=== PATIENT | female | born 1940 | race Caucasian/White ===

== ENCOUNTER 2018-07-21 07:36 | Inpatient (IN) ==
[2018-07-21] MEDS ORDERED: CeFAZolin Syr 2,000MG/20 ML 2,000 MG/20 ML SYRINGE IVPB ONE (07:58)
[2018-07-21] MEDS ORDERED: 0.9 % Sodium Chloride 500 ML IVC SCH (08:00)
[2018-07-21] MEDS ORDERED: *HR* FentaNYL (PF) 100 MCG/2 ML VIAL ONE (08:05)
[2018-07-21] MEDS ORDERED: Neostigmine Methylsulfate 3 MG/3 ML SYRINGE ONE (08:05)
[2018-07-21] MEDS ORDERED: Dexamethasone 4 MG/ML VIAL ONE ×2 (08:05)
[2018-07-21] MEDS ORDERED: Ondansetron 4 MG/2 ML VIAL ONE (08:05)
[2018-07-21] MEDS ORDERED: *HR* Rocuronium Bromide 50 MG/5 ML VIAL ONE (08:05)
[2018-07-21] MEDS ORDERED: *HR* Succinylcholine 200 MG/10 ML VIAL IVP ONE (08:05)
[2018-07-21] MEDS ORDERED: *HR* Propofol 200 MG/20 ML VIAL IVP ONE (08:05)
[2018-07-21] MEDS ORDERED: Lidocaine -MPF 2% 2 ML VIAL ONE (08:05)
[2018-07-21] MEDS ORDERED: Famotidine 20 MG/2 ML VIAL IVP ONE (08:20)
[2018-07-21] MEDS ORDERED: Acetaminophen IV 1,000 MG/100 ML INFUS..BTL IVPB ONE (08:20)
[2018-07-21] MEDS ORDERED: Pregabalin 75 MG CAPSULE PO ONE (08:20)
--- NOTE | 2018-07-21 08:24 | Anesthesia Evaluation PreOp ---
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: Denies Any Significant HX Other Medical History: Renal (CKD) Anesthesia History: No Prior Anesthetic Complications Alcohol Use: none Drug use: none Medications and Allergies Ammonium Lactate [Lac-Hydrin Five] 1 appl TP BID 07/11/15 [History] Aspirin [Adult Low Dose Aspirin EC] 81 mg PO DAILY 07/11/15 [History] Citalopram Hydrobromide [Celexa] 20 mg PO DAILY 07/11/15 [History] Fluticasone Propionate Nasal [Flonase] 50 mcg NS BID 07/11/15 [History] Metoprolol [Lopressor] 100 mg PO BID 07/11/15 [History] Nitroglycerin [Nitrostat] 0.4 mg SL DAILY PRN 07/11/15 [History] Simvastatin [Zocor] 20 mg PO DAILY 07/11/15 [History] Sucralfate [Carafate] 1 gm PO BID 07/11/15 [History] amLODIPine [Norvasc] 10 mg PO DAILY 07/11/15 [History] Losartan/HCTZ [Hyzaar 50-12.5 Tablet] 1 tab PO DAILY 10/03/15 [History] Docusate [Colace] 100 mg PO BID #60 capsule 10/05/15 [Rx] Albuterol Sulfate [Ventolin Hfa] 2 puff IH Q6H PRN 05/05/18 [History] Levothyroxine Sodium 50 mcg PO DAILY 05/05/18 [History] Potassium Chloride [K-Tab ER] 20 meq PO QPM 05/05/18 [History] Potassium Chloride [K-Tab ER] 40 meq PO QAM 05/05/18 [History] Ranitidine HCl [Zantac] 300 mg PO DAILY 05/05/18 [History] Allergy/AdvReac Type Severity Reaction Status Date / Time HILDA Inhibitors AdvReac Cough Verified 10/03/15 20:12 - Meds/Allergy Pre-op Review Medications Reviewed: Yes Allergies Reviewed: Yes Beta Blockers on Current Med List: Yes (on Metoprolol today 0600) Anesthesia Results - Labs Laboratory Tests 05/05/18 07/08/18 07/11/18 17:18 09:39 14:05 Hgb 9.4 L Hct 31.7 L Plt Count 203 PT 11.5 INR 1.0 APTT 26.9 Sodium 143 Potassium BUN 29 H Creatinine 1.05 07/11/18 14:05 Hgb Hct Plt Count PT INR APTT Sodium Potassium 4.3 BUN Creatinine - Imaging EKG: report reviewed (SR) Additional studies: ECHO 2019 EF 60%, mild pulm htn Anesthesia Exam O2 Sat Height 1.57 m Height 1.57 m Weight 77.111 kg Weight 77.111 kg O2 Sat by Pulse Oximetry 96 O2 Sat by Pulse Oximetry 96 Vital Signs Temp Pulse Resp BP Pulse Ox 97.8 F 61 18 109/69 96 07/21/18 07:51 07/21/18 07:51 07/21/18 07:51 07/21/18 07:51 07/21/18 07:51 Height: 5'2 Weight: 170 lbs NPO (# of Hours): MN Pain Scale: 0 - HEENT Pupil (Motor): Pupils equal, EOMI Mallampati: III Denture Type: Upper: Complete Oral Opening: Less than or equal to 3 - 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
--- NOTE | 2018-07-21 08:38 | History & Physical Report ---
Date of Encounter: 07/21/18 Time of Encounter: 08:30 24 Hour HP Update - Instructions Instructions: If the History and Physical is less than 30 days old and was completed prior to A.M. admission and or procedure and has NOT been updated on calendar day of procedure please complete this update prior to performing procedure. - Update Patient reports changes in Medical Condition: No Changes in examination, assessment, or condition: No Changes in Medication: No Preop tests/diagnostics Reviewed: Yes Surgery Remains Indicated: Yes Consent for Planned Operative Procedure(s) Verified: Yes - Pre-Operative Checklist Preoperative Checklist Indicated: Yes Prophylactic Antibiotic Ordered: Yes Home Medications Include Beta Carmen: Yes Beta Carmen Taken Today (Day of Surgery): Yes Beta Carmen Taken Yesterday (Day Prior to Surgery): Yes Is VTE Prophylaxis Indicated?: Yes
[2018-07-21] MEDS ORDERED: *HR* Morphine 2 MG/ML SYRINGE IVP PRN (08:45)
[2018-07-21] MEDS ORDERED: Ondansetron 4 MG/2 ML VIAL IVP ONE (08:45)
[2018-07-21] MEDS ORDERED: CefOXitin 1,000 MG VIAL ONE (09:00)
[2018-07-21] MEDS ORDERED: *HR* PHENYLEPHRINE 1,000 MCG/10 ML SYRINGE IVP ONE (09:20)
[2018-07-21] MEDS ORDERED: SUGAMMADEX SODIUM 500 MG/5 ML VIAL IV ONE (10:40)
--- NOTE | 2018-07-21 11:06 | Operative Note ---
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 Placement of right chest tube Anesthesia: TAHMINA Surgeon: Leonardo Calix Was there an recruiting assistant present: Yes Brim Pouncing Machine Operator: Ariela Gonzalez Estimated blood loss (cc): 25 Specimen: None Condition: stable Disposition: PACU Procedure in Detail: After informed consent the patients taking major operative suite placed supine position and given adequate general endotracheal anesthesia. The abdomen was prepped and draped in sterile fashion utilizing ChloraPrep standard draping techniques. Timeout was taken and patient was identified. I made an upper abdominal midline incision. The abdomen was entered. The vast majority of the stomach was intrathoracic. I mobilized the triangular ligament and lateral segment of left lobe of liver and retracted this inferiorly. Bookwalter retractor was placed. I divided the lesser omentum and entered the lesser sac over the right crura of the diaphragm. There were extensive hernia sac and soft tissue connections to the mediastinum especially on the right side. A lighted bougie dilator was used to positively identify the esophagus at all times and assist in the dissection. I divided the anterior hernia sac tissue holding the esophagus posteriorly. I then divided the short gastrics. There are was extensive soft tissue connection between the retroperitoneum just above the pancreas and the left side of the mediastinum. This had actually pulled the tail and body of the pancreas intrathoracic as well as the splenic artery. Di vision of the soft tissue allowed me to swing the pancreas and celiac axis back into the abdomen. The cardia was completely mobilized. There were extensive soft tissue connections posterior to the esophagus pulled into the right chest. These were divided. When this tissue was divided the right lung was visible. This was obviously pleura that had been pulled down into the abdomen with the hernia sac. The decision was made to place a right chest tube at the end of the case. The right maynor of the diaphragm was completely mobilized. The left crura of the diaphragm was now completely visible now that the overlying soft tissue was divided. The esophagus was completely surrounded with [place] drain and it appeared that the anterior and posterior vagus was intact. Repair the hiatal hernia was then performed with 4 stitches of 2-0 Ethibond with pledgets. This gave an excellent technical result. The patient's primary symptoms were dysphagia and atypical chest pain. I did not feel that Luigi fundoplication was appropriate. Instead, I performed anterior gastropexy. The cardia of the stomach was sutured onto the diaphragm with 8 stitches of 2-0 silk in its normal anatomic configuration. Total blood loss 25 mL. The liver was returned to its normal anatomic orientation. I irrigated with copious amounts of antibiotic containing solution. The fascia was closed with looped 0 PDS and the skin was closed with interrupted 2-0 Vicryl and skin clips. I used 30 mL of Marcaine for local pain management. I exposed the right chest this was prepped with ChloraPrep. I made a anterior axillary line incision and dissected down to the rib. I tunneled one rib higher and entered the chest. A #28-Vietnamese chest tube was placed to the apex without difficulty. There were normal respiratory variation with ventilation. This was sutured in place with 0 silk and attached to the chest tube drain. Postoperative chest x-ray is ordered. The patient tolerated procedure well and was transferred to recovery in stable condition.
[2018-07-21] MEDS: *HR* HYDROmorphone (PF) 1 MG/ML SYRINGE IVP PRN ×2 (11:25→11:33)
[2018-07-21] MEDS ORDERED: 0.9 % Sodium Chloride 500 ML ONE (11:53)
--- NOTE | 2018-07-21 12:15 | Anesthesia Evaluation Post Op ---
Date of Encounter: 07/21/18 Time of Encounter: 12:10 - Vital Signs Vital Signs: O2 Sat Height 1.57 m Height 1.57 m Weight 77.111 kg Weight 77.111 kg O2 Sat by Pulse Oximetry 96 O2 Sat by Pulse Oximetry 96 O2 Sat by Pulse Oximetry 96 O2 Sat by Pulse Oximetry 92 O2 Sat by Pulse Oximetry 94 O2 Sat by Pulse Oximetry 97 O2 Sat by Pulse Oximetry 93 O2 Sat by Pulse Oximetry 96 O2 Sat by Pulse Oximetry 96 Vital Signs Temp Pulse Resp BP Pulse Ox 97.8 F 61 18 109/69 96 07/21/18 07:51 07/21/18 07:51 07/21/18 07:51 07/21/18 07:51 07/21/18 07:51 - Lungs Lungs: Clear Ascult./Percussion - Airway Airway: Non-obstructed - Cardiovascular Regular Rate - Mental Status Mental Status: Alert & Oriented, Answers Appropriately - Pain Pain Scale: 0 - Nausea Vomiting Nausea Vomiting: Not Present - Hydration Hydration: Ice chips - Discharge PostOp Status: Transfer Patient to floor
[2018-07-21] MEDS ORDERED: *HR* HYDROmorphone 20 MG/20 ML PCA IVC PRN (12:38)
[2018-07-21] MEDS ORDERED: Ondansetron 4 MG/2 ML VIAL IVP PRN (12:38)
[2018-07-21] MEDS: 0.9 % Sodium Chloride 1,000 ML IVC SCH (13:09)
[2018-07-21] MEDS: *HR* Metoprolol 5 MG/5 ML VIAL IVP SCH ×2 (13:10→17:15)
[2018-07-21] MEDS ORDERED: 0.9 % Sodium Chloride 500 ML IVC ONE (13:26)
[2018-07-21 15:05] LABS: Basophils % 0.1 %; Eosinophils % 0.3 %; Hematocrit 28.5 % (35.3-44.9); Hemoglobin 8.5 g/dL (11.5-15.4); Immature Granulocytes % 0.3 % (0-4); Lymphocytes # 0.6 K/mcL (0.6-4.6); Mean Corpuscular HGB Conc 29.8 g/dL (31.6-35.5); Mean Corpuscular Hemoglobin 24.6 pg (28.0-33.3); Mean Corpuscular Volume 82.6 fL (83.0-100.0); Mean Platelet Volume 10.7 fL (9.4-12.4); Monocytes # 0.2 K/mcL (0.0-1.3); Monocytes % 2.7 %; Neutrophils # 6.5 K/mcL (1.6-8.9); Platelet Count 168 K/mcL (140-400); Red Blood Count 3.45 M/mcL (3.82-4.97); Red Cell Distribution Width 14.1 % (11.5-14.5); Segmented Neutrophils % 88.6 %
[2018-07-21 15:19] LABS: Calcium 8.3 mg/dL (8.6-10.3); Potassium 4.1 mEq/L (3.5-5.1)
[2018-07-21] MEDS: Ketorolac 15 MG/ML VIAL IVP SCH (17:15)
[2018-07-21] MEDS: Acetaminophen IV 1,000 MG/100 ML INFUS..BTL IVPB SCH ×2 (17:19→23:52)
[2018-07-21] MEDS: *HR* Heparin 5,000 UNIT/ML VIAL SQ SCH (17:19)
[2018-07-21] MEDS ORDERED: *HR* Heparin 5,000 UNIT/ML VIAL SQ SCH (18:00)
[2018-07-22] MEDS: Ketorolac 15 MG/ML VIAL IVP SCH ×4 (00:29→17:08)
[2018-07-22] MEDS: *HR* Metoprolol 5 MG/5 ML VIAL IVP SCH ×3 (00:29→11:54)
[2018-07-22] MEDS: Metoprolol 100 MG TABLET PO SCH ×2 (03:38→09:10)
[2018-07-22] MEDS: 0.9 % Sodium Chloride 1,000 ML IVC SCH ×2 (04:36→17:31)
[2018-07-22] MEDS: Acetaminophen IV 1,000 MG/100 ML INFUS..BTL IVPB SCH ×4 (04:57→22:18)
[2018-07-22] MEDS: *HR* Heparin 5,000 UNIT/ML VIAL SQ SCH ×2 (05:44→17:08)
[2018-07-22 06:10] LABS: Hematocrit 27.4 % (35.3-44.9); Hemoglobin 8.2 g/dL (11.5-15.4); Immature Granulocytes % 0.5 % (0-4); Lymphocytes # 0.4 K/mcL (0.6-4.6); Lymphocytes % 6.7 %; Mean Corpuscular HGB Conc 29.9 g/dL (31.6-35.5); Mean Corpuscular Hemoglobin 24.8 pg (28.0-33.3); Mean Corpuscular Volume 82.8 fL (83.0-100.0); Mean Platelet Volume 10.7 fL (9.4-12.4); Monocytes # 0.4 K/mcL (0.0-1.3); Monocytes % 5.5 %; Neutrophils # 5.8 K/mcL (1.6-8.9); Platelet Count 169 K/mcL (140-400); Red Blood Count 3.31 M/mcL (3.82-4.97); Red Cell Distribution Width 14.1 % (11.5-14.5); Segmented Neutrophils % 87.3 %
[2018-07-22 06:31] LABS: Calcium 7.9 mg/dL (8.6-10.3); Potassium 3.9 mEq/L (3.5-5.1)
--- NOTE | 2018-07-22 07:50 | General Surgery Progress Note ---
<Johnathon Rodriguez - Last Filed: 07/22/18 10:26> Date of Encounter: 07/22/18 Time of Encounter: 07:20 - Assessment and Plan (1) Paraesophageal hernia Status: Acute -POD 1 open repair hiatal hernia and anterior gastropexy -R sided chest tube placed intraop 2/2 lung pleura within hernia sac which was being pulled into abdomen -Pain adequately controlled, minimal pain at insertion site of chest tube -Chest tube wall suction without leaks, 30ml drainage -Continue Luigi diet as tolerating well -Will likely remove chest tube tomorrow (2) Anemia Status: Acute -Hgb 8.5 on admission 07/21/18 -Baseline hgb appears in 11's which was the case 05/2018 -Intraop EBL 25ml -Hgb today 8.2 -Anemia likely 2/2 chronic gastric bleed prior to procedure that should improve -Will monitor for any further acute changes in hgb and will transfuse if hgb <7 or if hgb <8 and symptomatic Qualifiers: Anemia type: unspecified type Qualified Code(s): D64.9 - Anemia, unspecified (3) HTN (hypertension) Status: Chronic -Hx of HTN -Home meds resumed but held post op as was borderline hypotensive which responded to IVF -Continue to trend Qualifiers: Hypertension type: essential hypertension Qualified Code(s): I10 - Essential (primary) hypertension Subjective Narrative: Minimal post op pain which is controlled with pain meds. Does complain of pain at insertion site of chest tube. Tolerating diet well. Objective Vital Signs - Last 8 Hours Temp Pulse Resp BP Pulse Ox 07/22/18 05:03 98.3 F 86 16 122/72 93 07/22/18 00:26 98.4 F 71 15 116/58 93 Intake and Output 07/21/18 07/21/18 07/22/18 15:59 23:59 07:59 Intake Total 200 / 200 1350 / 1350 Output Total Balance -25 / -25 197 / 197 1327 / 1327 Intake: IV Fluids 200 / 200 1200 / 1200 0.9 % Sodium Chloride 1,000 ML 1000 / 1000 @ 75 mls/hr IVC .[id number] [facility] Rx #:[id number] Ofirmev 1,000 mg/100 ml 1,000 100 / 100 200 / 200 mg In 100 ml @ 400 mls/hr IVPB Q6H [facility] Rx#:[id number] Ancef 2,000 MG In 0.9 % Sodium 100 / 100 Chloride 100 ML @ 200 mls/hr IVPB Q8HR [facility] Rx#:[id number] Oral 0 / 0 150 / 150 Output: Estimated Blood Loss 25 Wound Drainage right chest Chest Tube Drainage Right Lateral Chest #1 Other: # Voids 1 Weight 77.111 kg Blood Glucose* 159 112 - General physical appearance well developed, well nourished, no distress - Eyes normal ocular movement - ENT dry mucosa - Neck Neck exam: trachea midline - Respiratory normal expansion, normal respiratory effort, clear to auscultation - Cardiovascular Cardiovascular exam: Present: RRR. Absent: bradycardia, tachycardia, irregular rhythm, murmurs, clicks, rubs, gallop, distant heart sounds, JVD - Abdomen Abdomen: Present: bowel sounds present, soft, tender (At surg site ). Absent: distended, organomegaly, masses, guarding, rebound, rigid - Incision Incision: Present: clean and dry. Absent: draining, red, swollen, erythema, purulent, indurated, serous, serosanguinous - Integumentary no rash - Neurologic CN 2-12 grossly intact - Psychiatric oriented to time, oriented to person, oriented to place, speech is normal - Labs 07/22/18 05:41 07/22/18 05:41 Diabetes panel 07/21/18 07/22/18 Range/Units 14:42 05:41 Sodium 140 142 (136-145) mEq/L Potassium 4.1 3.9 (3.5-5.1) mEq/L Chloride 112 H 112 H (98-107) mEq/L Carbon Dioxide 22 L 21 L (23-29) mEq/L BUN 29 H 32 H (8-23) mg/dL Creatinine 1.19 1.17 (0.60-1.20) mg/dL Glucose 150 H 128 H (70-105) mg/dL Calcium 8.3 L 7.9 L (8.6-10.3) mg/dL Calcium panel 07/21/18 07/22/18 Range/Units 14:42 05:41 Calcium 8.3 L 7.9 L (8.6-10.3) mg/dL Pituitary panel 07/21/18 07/22/18 Range/Units 14:42 05:41 Sodium 140 142 (136-145) mEq/L Potassium 4.1 3.9 (3.5-5.1) mEq/L Chloride 112 H 112 H (98-107) mEq/L Carbon Dioxide 22 L 21 L (23-29) mEq/L BUN 29 H 32 H (8-23) mg/dL Creatinine 1.19 1.17 (0.60-1.20) mg/dL Glucose 150 H 128 H (70-105) mg/dL Calcium 8.3 L 7.9 L (8.6-10.3) mg/dL Adrenal panel 07/21/18 07/22/18 Range/Units 14:42 05:41 Sodium 140 142 (136-145) mEq/L Potassium 4.1 3.9 (3.5-5.1) mEq/L Chloride 112 H 112 H (98-107) mEq/L Carbon Dioxide 22 L 21 L (23-29) mEq/L BUN 29 H 32 H (8-23) mg/dL Creatinine 1.19 1.17 (0.60-1.20) mg/dL Glucose 150 H 128 H (70-105) mg/dL Calcium 8.3 L 7.9 L (8.6-10.3) mg/dL Consult Discharge Plan - Plan Instructions: Hiatal Hernia (DC), Staple Care (DC) Additional Instructions: General Surgical Discharge Instructions 1. No pushing, pulling, or lifting greater than 15 lbs for 2-4 weeks (depending upon procedure). 2. You may shower beginning today, but no tub baths, soaking, or swimming for 2 weeks. 3. You may resume driving when you are off narcotics and are safe to react in a car. 4. Take ibuprofen every 8 hours for discomfort. If this does not relieve discomfort, you may take the as needed Percocet. Take narcotics as directed. Do not take more narcotics then directed and do not share your narcotics with any other person. Do not drink alcohol while on narcotics. 5. Take stool softeners (Colace) or a water based laxative (Miralax) while taking narcotics. You may hold for loose stools. 6. Report any fevers greater than 100.5F, increase abdominal discomfort, drainage that looks like pus, increased redness or pain at the surgical site, or any vomiting. 7. Report any pain in the calves, shortness of breath, or rapid heartbeat. 8. Follow-up in the office as directed. 9. Follow Luigi diet as outlined in the instructional handout Referrals: Brian Redding MD [Primary Care Provider] - Janeth Otero CNP [Advanced Practice Nurse] - Prescriptions: Docusate [Colace] 100 mg PO BID 14 Days #28 capsule RX: Ibuprofen 800 mg PO Q8H 14 Days #42 tablet Oxycodone HCl/Acetaminophen [Percocet 5-325 mg Tablet] 1 each PO Q6H PRN 7 Days #28 tablet PRN Reason: Breakthrough Pain <Leonardo Calix - Last Filed: 07/27/18 07:24> Date of Encounter: 07/22/18 Objective - Labs 07/24/18 05:45 07/24/18 05:45 - Attending Attestation I examined this patient and my medical decision-making was reviewed with the Resident Physician. I agree with the documented findings, disposition and treatment plan as described except to the extent set forth below. The patient is seen and evaluated on morning rounds with resident. There is no air leak in the right chest tube. The chest tube can be removed tomorrow. She may be started on clear liquids. Leonardo Calix MD FACS
[2018-07-22] MEDS: amLODIPine 5 MG TABLET PO SCH (09:16)
[2018-07-22] MEDS: Pantoprazole 40 MG VIAL IVP SCH (09:16)
[2018-07-22] MEDS: Aspirin Enteric Coated 81 MG Tablet PO SCH (09:16)
[2018-07-22 18:16] LABS: Hematocrit 26.4 % (35.3-44.9); Hemoglobin 7.8 g/dL (11.5-15.4)
[2018-07-23] MEDS: Acetaminophen IV 1,000 MG/100 ML INFUS..BTL IVPB SCH ×4 (05:23→21:44)
[2018-07-23] MEDS: Ketorolac 15 MG/ML VIAL IVP SCH ×5 (05:23→23:46)
[2018-07-23] MEDS: *HR* Heparin 5,000 UNIT/ML VIAL SQ SCH ×2 (05:47→17:14)
[2018-07-23 06:12] LABS: Hematocrit 28.5 % (35.3-44.9); Hemoglobin 8.5 g/dL (11.5-15.4); Mean Corpuscular HGB Conc 29.8 g/dL (31.6-35.5); Mean Corpuscular Hemoglobin 24.7 pg (28.0-33.3); Mean Corpuscular Volume 82.8 fL (83.0-100.0); Mean Platelet Volume 11.2 fL (9.4-12.4); Platelet Count 207 K/mcL (140-400); Red Blood Count 3.44 M/mcL (3.82-4.97); Red Cell Distribution Width 14.4 % (11.5-14.5)
[2018-07-23 06:33] LABS: BUN/Creatinine Ratio 24 (6-26); Blood Urea Nitrogen 23 mg/dL (8-23); Calcium 8.2 mg/dL (8.6-10.3); Carbon Dioxide 21 mEq/L (23-29); Chloride 112 mEq/L (98-107); Glucose 103 mg/dL (70-105); Magnesium 1.7 mg/dL (1.6-2.6); Osmolality,Calculated 296 (280-300); Phosphorous 2.3 mg/dL (2.7-4.5); Potassium 3.2 mEq/L (3.5-5.1); Sodium 141 mEq/L (136-145); eGFR For Non-African Americans 56 (> 60)
--- NOTE | 2018-07-23 06:44 | General Surgery Progress Note ---
<Johnathon Rodriguez - Last Filed: 07/23/18 09:00> Date of Encounter: 07/23/18 Time of Encounter: 06:42 - Assessment and Plan (1) Paraesophageal hernia Current Visit: No Status: Acute -POD 2 open repair hiatal hernia and anterior gastropexy -R sided chest tube placed intraop 2/2 lung pleura within hernia sac which was being pulled into abdomen -Pain adequately controlled, minimal pain at insertion site of chest tube -Chest tube wall suction without leaks, 200ml drainage -Chest tube removed this morning -Cxr after chest tube removal -Continue Luigi diet as tolerating well -Flatulence but no BM yet -Likely dc tomorrow (2) Anemia Current Visit: Yes Status: Acute -Hgb 8.5 on admission 07/21/18 -Baseline hgb appears in 11's which was the case 05/2018 -Intraop EBL 25ml -Hgb improved to 8.5 from 7.8 yesterday -Anemia likely 2/2 chronic gastric bleed prior to procedure that should improve -Will monitor for any further acute changes in hgb and will transfuse if hgb <7 or if hgb <8 and symptomatic Qualifiers: Anemia type: unspecified type Qualified Code(s): D64.9 - Anemia, unspecified (3) HTN (hypertension) Current Visit: No Status: Chronic -Hx of HTN -Home meds resumed but held post op as was borderline hypotensive which responded to IVF -Continue to trend Qualifiers: Hypertension type: essential hypertension Qualified Code(s): I10 - Essential (primary) hypertension Subjective Narrative: No new complaints today. Tolerating diet but appetite decreased, pain adequately controlled, having flatulence but no BM yet. Denies subjective fever/chills, worsening abdominal pain, N/V. Objective Vital Signs - Last 8 Hours Temp Pulse Resp BP Pulse Ox 07/23/18 04:03 98.2 F 86 18 114/64 92 Intake and Output 07/22/18 07/22/18 07/23/18 15:59 23:59 07:59 Intake Total 400 / 400 1350 / 1350 0 / 0 Output Total 378 / 378 572 / 572 700 / 700 Balance 778 / 778 -700 / -700 Intake: IV Fluids 100 / 100 1200 / 1200 0.9 % Sodium Chloride 1,000 ML 1000 / 1000 @ 75 mls/hr IVC .[id number] [facility] Rx #:[id number] Ofirmev 1,000 mg/100 ml 1,000 100 / 100 200 / 200 mg In 100 ml @ 400 mls/hr IVPB Q6H [facility] Rx#:[id number] Oral 300 / 300 150 / 150 0 / 0 Output: Urine 375 / 375 500 / 500 700 / 700 Wound Drainage 3 / 3 right chest 3 / 3 Chest Tube Drainage / 72 Right Lateral Chest #1 Other: Meal clears Percent of Meal Consumed 0% # Voids 1 Weight 78.9 kg Patient Weight 07/23/18 23:59 Weight 78.9 kg - General physical appearance well developed, well nourished, no distress - Eyes normal ocular movement - ENT dry mucosa - Neck Neck exam: trachea midline - Respiratory normal expansion, clear to auscultation - Cardiovascular Cardiovascular exam: Present: RRR. Absent: bradycardia, tachycardia, irregular rhythm, murmurs, clicks, rubs, gallop, distant heart sounds, JVD - Abdomen Abdomen: Present: bowel sounds present, soft. Absent: distended, organomegaly, masses, guarding, rebound, rigid, peritoneal - Incision Incision: Present: clean and dry. Absent: draining, red, swollen, erythema, purulent, indurated, serous, serosanguinous - Integumentary no rash - Neurologic CN 2-12 grossly intact, normal coordination - Psychiatric oriented to time, oriented to person, oriented to place, speech is normal - Labs 07/23/18 05:46 07/23/18 05:46 Diabetes panel 07/23/18 Range/Units 05:46 Sodium 141 (136-145) mEq/L Potassium 3.2 L (3.5-5.1) mEq/L Chloride 112 H (98-107) mEq/L Carbon Dioxide 21 L (23-29) mEq/L BUN 23 (8-23) mg/dL Creatinine 0.97 (0.60-1.20) mg/dL Glucose 103 (70-105) mg/dL Calcium 8.2 L (8.6-10.3) mg/dL Calcium panel 07/23/18 Range/Units 05:46 Calcium 8.2 L (8.6-10.3) mg/dL Phosphorus 2.3 L (2.7-4.5) mg/dL Pituitary panel 07/23/18 Range/Units 05:46 Sodium 141 (136-145) mEq/L Potassium 3.2 L (3.5-5.1) mEq/L Chloride 112 H (98-107) mEq/L Carbon Dioxide 21 L (23-29) mEq/L BUN 23 (8-23) mg/dL Creatinine 0.97 (0.60-1.20) mg/dL Glucose 103 (70-105) mg/dL Calcium 8.2 L (8.6-10.3) mg/dL Adrenal panel 07/23/18 Range/Units 05:46 Sodium 141 (136-145) mEq/L Potassium 3.2 L (3.5-5.1) mEq/L Chloride 112 H (98-107) mEq/L Carbon Dioxide 21 L (23-29) mEq/L BUN 23 (8-23) mg/dL Creatinine 0.97 (0.60-1.20) mg/dL Glucose 103 (70-105) mg/dL Calcium 8.2 L (8.6-10.3) mg/dL Consult Discharge Plan - Plan Referrals: Brian Redding MD [Primary Care Provider] - Janeth Otero CNP [Advanced Practice Nurse] - Prescriptions: Ondansetron ODT [Zofran ODT] 4 mg SL Q6HR PRN 4 Days #15 tab.rapdis PRN Reason: Nausea Docusate [Colace] 100 mg PO BID 14 Days #28 capsule RX: Ibuprofen 800 mg PO Q8H 14 Days #42 tablet Oxycodone HCl/Acetaminophen [Percocet 5-325 mg Tablet] 1 each PO Q6H PRN 7 Days #28 tablet PRN Reason: Breakthrough Pain <Arik Barone - Last Filed: 07/23/18 20:16> Date of Encounter: 07/23/18 Objective Vital Signs - Last 8 Hours Temp Pulse Resp BP Pulse Ox 07/23/18 19:06 98.5 F 76 18 129/77 90 07/23/18 15:20 98 F 70 17 102/60 91 Intake and Output 07/23/18 07/23/18 07/23/18 07:59 15:59 23:59 Intake Total 100 / 100 1370 / 1370 0 / 0 Output Total 700 / 700 0 / 0 0 / 0 Balance -600 / -600 1370 / 1370 0 / 0 Intake: IV Fluids 100 / 100 1100 / 1100 0.9 % Sodium Chloride 1,000 ML 1000 / 1000 @ 75 mls/hr IVC .[id number] [facility] Rx #:[id number] Ofirmev 1,000 mg/100 ml 1,000 100 / 100 100 / 100 mg In 100 ml @ 400 mls/hr IVPB Q6H [facility] Rx#:[id number] Oral 0 / 0 270 / 270 0 / 0 Output: Urine 700 / 700 0 / 0 0 / 0 Other: Stool Size Small Stool Consistency loose Stool Color Brown # Voids 1 1 # Bowel Movements 1 Weight 78.9 kg Patient Weight 07/23/18 23:59 Weight 78.9 kg - Labs 07/23/18 05:46 07/23/18 05:46 Diabetes panel 07/23/18 Range/Units 05:46 Sodium 141 (136-145) mEq/L Potassium 3.2 L (3.5-5.1) mEq/L Chloride 112 H (98-107) mEq/L Carbon Dioxide 21 L (23-29) mEq/L BUN 23 (8-23) mg/dL Creatinine 0.97 (0.60-1.20) mg/dL Glucose 103 (70-105) mg/dL Calcium 8.2 L (8.6-10.3) mg/dL Calcium panel 07/23/18 Range/Units 05:46 Calcium 8.2 L (8.6-10.3) mg/dL Phosphorus 2.3 L (2.7-4.5) mg/dL Pituitary panel 07/23/18 Range/Units 05:46 Sodium 141 (136-145) mEq/L Potassium 3.2 L (3.5-5.1) mEq/L Chloride 112 H (98-107) mEq/L Carbon Dioxide 21 L (23-29) mEq/L BUN 23 (8-23) mg/dL Creatinine 0.97 (0.60-1.20) mg/dL Glucose 103 (70-105) mg/dL Calcium 8.2 L (8.6-10.3) mg/dL Adrenal panel 07/23/18 Range/Units 05:46 Sodium 141 (136-145) mEq/L Potassium 3.2 L (3.5-5.1) mEq/L Chloride 112 H (98-107) mEq/L Carbon Dioxide 21 L (23-29) mEq/L BUN 23 (8-23) mg/dL Creatinine 0.97 (0.60-1.20) mg/dL Glucose 103 (70-105) mg/dL Calcium 8.2 L (8.6-10.3) mg/dL - Attending Attestation I have personally seen and examined the patient. I have reviewed pertinent la bs, imaging, progress notes, including this one. I have discussed the plan in thorough detail with the resident and nurse practitioner. I agree with the above assessment and plan and wish to add the following... Removed CT today, no PTX; only atelectasis; currently with high oxygen re quirements, but has history of COPD/SHERICE diet as tolerated change oxygen requirements to titrate to >88% activity as tolerated will plan for d/c on 07/24
[2018-07-23] MEDS ORDERED: Potassium Phosphate 44 MEQ in 0.9 % Sodium Chloride 250 ML IVPB ONE (06:48)
[2018-07-23] MEDS: Metoprolol 100 MG TABLET PO SCH ×3 (07:42→21:43)
[2018-07-23] MEDS: Pantoprazole 40 MG VIAL IVP SCH (08:52)
[2018-07-23] MEDS: amLODIPine 5 MG TABLET PO SCH (08:52)
[2018-07-23] MEDS: Aspirin Enteric Coated 81 MG Tablet PO SCH (08:52)
[2018-07-23] MEDS: 0.9 % Sodium Chloride 1,000 ML IVC SCH ×2 (10:15→23:46)
[2018-07-24] MEDS: Acetaminophen IV 1,000 MG/100 ML INFUS..BTL IVPB SCH ×2 (03:02→10:19)
[2018-07-24] MEDS: Ketorolac 15 MG/ML VIAL IVP SCH ×2 (05:00→12:26)
[2018-07-24] MEDS: *HR* Heparin 5,000 UNIT/ML VIAL SQ SCH (05:00)
[2018-07-24 07:12] LABS: Hematocrit 24.7 % (35.3-44.9); Hemoglobin 7.4 g/dL (11.5-15.4); Mean Corpuscular Hemoglobin 24.6 pg (28.0-33.3); Mean Corpuscular Volume 82.1 fL (83.0-100.0); Mean Platelet Volume 10.8 fL (9.4-12.4); Platelet Count 145 K/mcL (140-400); Red Blood Count 3.01 M/mcL (3.82-4.97); Red Cell Distribution Width 14.3 % (11.5-14.5)
--- NOTE | 2018-07-24 07:21 | Discharge Summary ---
<Johnathon Rodriguez Stephani - Last Filed: 07/24/18 09:01> - NOTES TO OUTPATIENT PROVIDER Notes to Outpatient Provider: Admitted 07/21/18 with large paraesophageal hernia and had open repair of hernia and anterior gastropexy. R sided chest tube was placed intraop. Chest tube was removed without complication on POD 2. She to lerated Luigi diet well and pain has been minimal. Orders not resulted at time of discharge: Pending orders 07/24/18 05:45 Basic Metabolic Panel AM 0400 Complete Blood Count w/o Diff [HEME] AM 0400 Magnesium AM 0400 Phosphorous AM 0400 07/25/18 04:00 Basic Metabolic Panel AM 0400 Complete Blood Count w/o Diff [HEME] AM 0400 Magnesium AM 0400 Phosphorous AM 0400 Date of Encounter: 07/24/18 Time of Encounter: 07:23 - Discharge Diagnosis (1) Paraesophageal hernia Priority: Primary Status: Acute Comments: -POD 3 open repair hiatal hernia and anterior gastropexy -R sided chest tube placed intraop 2/2 lung pleura within hernia sac which was being pulled into abdomen -Pain adequately controlled, minimal pain at insertion site of chest tube POD 1 -Chest tube removed POD 2 without complication -Cxr after chest tube removal without pneumothorax -Continue Luigi diet as tolerating well -Bowel function returned postoperatively overnight -Ambulating in halls without difficulty, required some supplemental O2 yesterday likely 2/2 atelectasis and encouraged continued IS use and ambulation -Stable for dc and will followup in surg clinic in 2 weeks (2) Anemia Priority: Secondary Status: Acute Comments: -Hgb 8.5 on admission 07/21/18 -Baseline hgb appears in 11's which was the case 05/2018 -Intraop EBL 25ml -Hgb down to 7.4 today from 8.5 but does appear dilutional as all cell lines decreased -Anemia likely 2/2 chronic gastric bleed prior to procedure that should improve -Will monitor for any further acute changes in hgb and will transfuse if hgb <7 or if hgb <8 and symptomatic Qualifiers: Anemia type: unspecified type Qualified Code(s): D64.9 - Anemia, unspecified (3) HTN (hypertension) Priority: Secondary Status: Chronic Comments: -Hx of HTN -Home meds resumed but held post op as was borderline hypotensive which responded to IVF -Continue to trend Qualifiers: Hypertension type: essential hypertension Qualified Code(s): I10 - Essential (primary) hypertension (4) CKD (chronic kidney disease) stage 3, GFR 30-59 ml/min Priority: Secondary Status: Chronic Comments: -Hx of CKD -GFR stable and within range -Electrolytes repleted as indicated General Surgery Exam Initial Vital Signs Temp Pulse Resp BP Pulse Ox 97.8 F 61 18 109/69 96 07/21/18 07:51 07/21/18 07:51 07/21/18 07:51 07/21/18 07:51 07/21/18 07:51 - General physical appearance well developed, well nourished, no distress - ENT dry mucosa - Neck trachea midline - Respiratory normal expansion, normal respiratory effort crackles: right - Cardiovascular Cardiovascular exam: Present: RRR. Absent: bradycardia, tachycardia, irregular rhythm, murmurs, clicks, rubs, gallop, distant heart sounds, JVD - Abdomen Abdomen general surgery: Present: bowel sounds present, soft, tender (mild at incisional site). Absent: distended, organomegaly, masses, guarding, rebound, rigid, peritoneal - Incision Incision: Present: clean and dry. Absent: draining, red, swollen, inflamed, erythema, purulent, indurated, serous, serosanguinous - Integumentary Integumentary general surgery: Present: warm and dry - Neurologic Present: CN 2-12 grossly intact, normal coordination - Psychiatric Psychiatric general surgery: Present: A&Ox3, appropriate - Hospital Course Hospital course: Ms. Rios is a 77 year old female who was admitted 07/21/18 with large paraesophageal hernia and underwent open repair of hernia and anterior gastropexy. R sided chest tube placed intraop 2/2 lung pleura within hernia sac which was being pulled into abdomen. Chest tube was removed on POD 2 without complications or pneumothorax on cxr confirmation. She had an undulating hgb between 8.5 and 7.4 but decrease day of discharge appears to be dilutional as all cell lines decreased. She remained asymptomatic for anemia. She had electrolytes repleted and had otherwise uncomplicated post op course. Afebrile and without leukocytosis throughout her stay. She tolerated Luigi diet well, pain well controlled with po meds, ambulating and had return of bowel function postoperatively. She will followup with surg clinic in 2 weeks. - Time Spent with Patient Total time spent providing and/or coordinating discharge services: - Discharge Medications Prescriptions: New Ondansetron ODT [Zofran ODT] 4 mg SL Q6HR PRN 4 Days #15 tab.rapdis PRN Reason: Nausea Docusate [Colace] 100 mg PO BID 14 Days #28 capsule RX: Ibuprofen 800 mg PO Q8H 14 Days #42 tablet Oxycodone HCl/Acetaminophen [Percocet 5-325 mg Tablet] 1 each PO Q6H PRN 7 D ays #28 tablet PRN Reason: Breakthrough Pain No Action RX: amLODIPine [Norvasc] 10 mg PO DAILY RX: Sucralfate [Carafate] 1 gm PO BID RX: Simvastatin [Zocor] 20 mg PO DAILY RX: Nitroglycerin [Nitrostat] 0.4 mg SL DAILY PRN PRN Reason: Chest Pain RX: Metoprolol [Lopressor] 100 mg PO BID RX: Fluticasone Propionate Nasal [Flonase] 1 puff NS DAILY PRN PRN Reason: Allergy Symptoms RX: Citalopram Hydrobromide [Celexa] 20 mg PO DAILY RX: Aspirin [Adult Low Dose Aspirin EC] 81 mg PO DAILY RX: Losartan/HCTZ [Hyzaar 50-12.5 Tablet] 1 tab PO DAILY RX: Albuterol Sulfate [Ventolin Hfa] 2 puff IH Q4H PRN PRN Reason: Dyspnea RX: Levothyroxine Sodium 50 mcg PO DAILY RX: Potassium Chloride [K-Tab ER] 40 meq PO QAM RX: Potassium Chloride [K-Tab ER] 20 meq PO QPM RX: Ranitidine HCl [Zantac] 300 mg PO DAILY Cholecalciferol (D-3) [Vitamin D] 2,000 unit PO DAILY Loratadine [Allergy Relief] 10 mg PO DAILY RX: Fluticasone/Salmeterol [Advair 250-50 Diskus] 1 puff IH BID Acetaminophen [Tylenol] 325 mg PO BID Home Medications: RX: Aspirin [Adult Low Dose Aspirin EC] 81 mg PO DAILY 07/11/15 [History] RX: Citalopram Hydrobromide [Celexa] 20 mg PO DAILY 07/11/15 [History] RX: Fluticasone Propionate Nasal [Flonase] 1 puff NS DAILY PRN 07/11/15 [History] RX: Metoprolol [Lopressor] 100 mg PO BID 07/11/15 [History] RX: Nitroglycerin [Nitrostat] 0.4 mg SL DAILY PRN 07/11/15 [History] RX: Simvastatin [Zocor] 20 mg PO DAILY 07/11/15 [History] RX: Sucralfate [Carafate] 1 gm PO BID 07/11/15 [History] RX: amLODIPine [Norvasc] 10 mg PO DAILY 07/11/15 [History] RX: Losartan/HCTZ [Hyzaar 50-12.5 Tablet] 1 tab PO DAILY 10/03/15 [History] RX: Albuterol Sulfate [Ventolin Hfa] 2 puff IH Q4H PRN 05/05/18 [History] RX: Levothyroxine Sodium 50 mcg PO DAILY 05/05/18 [History] RX: Potassium Chloride [K-Tab ER] 20 meq PO QPM 05/05/18 [History] RX: Potassium Chloride [K-Tab ER] 40 meq PO QAM 05/05/18 [History] RX: Ranitidine HCl [Zantac] 300 mg PO DAILY 05/05/18 [History] Acetaminophen [Tylenol] 325 mg PO BID 07/21/18 [History] Cholecalciferol (D-3) [Vitamin D] 2,000 unit PO DAILY 07/21/18 [History] Loratadine [Allergy Relief] 10 mg PO DAILY 07/21/18 [History] RX: Fluticasone/Salmeterol [Advair 250-50 Diskus] 1 puff IH BID 07/21/18 [History] Docusate [Colace] 100 mg PO BID 14 Days #28 capsule 07/22/18 [Rx] Ondansetron ODT [Zofran ODT] 4 mg SL Q6HR PRN 4 Days #15 tab.rapdis 07/22/18 [Rx] Oxycodone HCl/Acetaminophen [Percocet 5-325 mg Tablet] 1 each PO Q6H PRN 7 Days #28 tablet 07/22/18 [Rx] RX: Ibuprofen 800 mg PO Q8H 14 Days #42 tablet 07/22/18 [Rx] Allergies/Adverse Reactions: Allergy/AdvReac Type Severity Reaction Status Date / Time HILDA Inhibitors AdvReac Cough Verified 10/03/15 20:12 Date of admission: 07/21/18 12:31 Primary care physician: Brian Redding MD Discharging clinician: Johnathon Rodriguez Anticipated date of discharge: 07/24/18 - Impressions ITS Impressions Chest X-Ray 07/21/18 11:19 IMPRESSION: 1. Right chest tube in place, without pneumothorax. 2. Low lung volumes with bibasilar opacities which most likely represent atelectasis. 3. Mild cardiomegaly. D/ / Nba Herbert MD / Nba Herbert MD Interpreting Provider: Nba Herbert MD Chest X-Ray 07/23/18 07:44 IMPRESSION: 1. Interval right chest tube removal. No pneumothorax. 2. Right infrahilar opacity may represent atelectasis or infiltrate. 3. Small left pleural effusion and left basilar atelectasis. D/ / Tristen Mills MD / Tristen Mills MD Interpreting Provider: Tristen Mills MD - Patient Status Disposition: Home, Self-Care Condition: Good Functional capacity at discharge: independent ambulation Overall status at discharge: patient is progressing back to baseline - Discharge Instructions Instructions: Hiatal Hernia (DC) Follow Up With: Brian Redding MD [Primary Care Provider] - Janeth Otero CNP [Advanced Practice Nurse] - Additional Instructions: General Surgical Discharge Instructions 1. No pushing, pulling, or lifting greater than 15 lbs for 2-4 weeks (depending upon procedure). 2. You may shower beginning today, but no tub baths, soaking, or swimming for 2 weeks. 3. You may resume driving when you are off narcotics and are safe to react in a car. 4. Take ibuprofen every 8 hours for discomfort. If this does not relieve discomfort, you may take the as needed Percocet. Take narcotics as directed. Do not take more narcotics then directed and do not share your narcotics with any other person. Do not drink alcohol while on narcotics. 5. Take stool softeners (Colace) or a water based laxative (Miralax) while taking narcotics. You may hold for loose stools. 6. Report any fevers greater than 100.5F, increase abdominal discomfort, drainage that looks like pus, increased redness or pain at the surgical site, or any vomiting. 7. Report any pain in the calves, shortness of breath, or rapid heartbeat. 8. Follow-up in the office as directed. 9. Follow Luigi diet as outlined in the instructional handout - Diet and Activity Activity: increase activity as tolerated, resume usual activities as tolerated <Arik Barone - Last Filed: 07/24/18 09:20> Orders not resulted at time of discharge: Pending orders 07/25/18 04:00 Basic Metabolic Panel AM 0400 Complete Blood Count w/o Diff [HEME] AM 0400 Magnesium AM 0400 Phosphorous AM 0400 Date of Encounter: 07/24/18 General Surgery Exam Initial Vital Signs Temp Pulse Resp BP Pulse Ox 97.8 F 61 18 109/69 96 07/21/18 07:51 07/21/18 07:51 07/21/18 07:51 07/21/18 07:51 07/21/18 07:51 - Hospital Course Hospital course: Ms. Rios is a 77 year old female - Time Spent with Patient Total time spent providing and/or coordinating discharge services: Date of admission: 07/21/18 12:31 Primary care physician: Brian Redding MD Labs on day of discharge: Labs from last 24 hours 07/24/18 07/24/18 05:45 05:45 WBC 4.5 RBC 3.01 L Hgb 7.4 L Hct 24.7 L MCV 82.1 L MCH 24.6 L MCHC 30.0 L RDW 14.3 Plt Count 145 MPV 10.8 Sodium 143 Potassium 3.1 L Chloride 114 H Carbon Dioxide 23 BUN 17 Creatinine 0.78 Est GFR ( Amer) > 60 Est GFR (Non-Af Amer) > 60 BUN/Creatinine Ratio 22 Glucose 85 Calculated Osmolality 297 Calcium 7.8 L Phosphorus 2.7 Magnesium 1.5 L - Impressions ITS Impressions Chest X-Ray 07/21/18 11:19 IMPRESSION: 1. Right chest tube in place, without pneumothorax. 2. Low lung volumes with bibasilar opacities which most likely represent atelectasis. 3. Mild cardiomegaly. D/ / Nba Herbert MD / Nba Herbert MD Interpreting Provider: Nba Herbert MD Chest X-Ray 07/23/18 07:44 IMPRESSION: 1. Interval right chest tube removal. No pneumothorax. 2. Right infrahilar opacity may represent atelectasis or infiltrate. 3. Small left pleural effusion and left basilar atelectasis. D/ / Tristen Mills MD / Tristen Mills MD Interpreting Provider: Tristen Mills MD - Attending Attestation patient seen and examined. i have reviewed all labs, imaging, and notes. i have discussed the case with the resident in detail. I agree with the above assessment and plan and wish to add the following... no acute respiratory issue; oxygen sats dropped at night but not on her usual b ipap; good chest wall expansion; no PTX on xray; no evidence of subcutaneous emphysema; tolerating luigi diet; having bowel function; incision is clean, dry, intact; abdomen is less distended okay for d/c today
[2018-07-24 07:31] LABS: BUN/Creatinine Ratio 22 (6-26); Blood Urea Nitrogen 17 mg/dL (8-23); Calcium 7.8 mg/dL (8.6-10.3); Carbon Dioxide 23 mEq/L (23-29); Chloride 114 mEq/L (98-107); Glucose 85 mg/dL (70-105); Magnesium 1.5 mg/dL (1.6-2.6); Osmolality,Calculated 297 (280-300); Phosphorous 2.7 mg/dL (2.7-4.5); Potassium 3.1 mEq/L (3.5-5.1); Sodium 143 mEq/L (136-145); eGFR For Non-African Americans > 60 (> 60)
[2018-07-24 07:52] VITALS: BP 115/71
[2018-07-24] MEDS: Aspirin Enteric Coated 81 MG Tablet PO SCH (08:44)
[2018-07-24] MEDS: Pantoprazole 40 MG VIAL IVP SCH (08:44)
[2018-07-24] MEDS: amLODIPine 5 MG TABLET PO SCH (08:44)
[2018-07-24] MEDS: Metoprolol 100 MG TABLET PO SCH (08:45)
== END 2018-07-24 15:15 | disposition home or self-care (01) | DRG 328 ==
LOC: SAMDAY 07:36 → 3ANU 12:31
PROVIDERS: ADMIT Surgery; ATTEND Surgery